=== PATIENT | female | born 1960 | race Caucasian/White ===

== ENCOUNTER 2018-08-08 12:48 | Emergency (ER) | payer SELFPAY ==
[~2018-08-08] VITALS: Ht 157.5 cm; Wt 76.6 kg
[2018-08-08] MEDS ORDERED: VALACYCLOVIR HCL 500MG TABLET PO STA (13:35)
[2018-08-08] MEDS ORDERED: PREDNISONE 20MG TABLET PO ONE (13:45)
[2018-08-08 15:28] LABS: BASOPHILS % 0.4 % (0.0-2.0); HEMATOCRIT. 45.2 % (36.0-48.0); HEMOGLOBIN. 15.3 g/dL (12.0-16.0); LYMPHOCYTES % 31.9 % (20.0-50.0); MEAN CORPUSCULAR HEMOGLOBIN 30.9 pg (28.0-32.0); MEAN PLATELET VOLUME 8.4 fl (7.4-10.4); MONOCYTES % 8.1 % (2.0-8.0); NEUTROPHILS % 57.6 % (40.0-76.0); PLATELET 254 x1000/uL (130-400); RED BLOOD CELL COUNT 4.97 mill/uL (4.2-5.4); RED CELL DISTRIBUTION WIDTH 12.7 % (11.6-14.6)
[2018-08-08 15:38] LABS: CHLORIDE 105 mEq/L (98-107)
[2018-08-08 17:05] VITALS: BP 143/72
== END 2018-08-08 17:15 | disposition home or self-care (01) ==
LOC: ER 12:48
DX: G51.0 Bell's palsy (principal)
CPT/HCPCS: 36415; 70450; 80053; 85025; 99284; J7512